=== PATIENT | female | born 1975 | race Caucasian/White ===

== ENCOUNTER 2020-07-09 07:39 | Outpatient (CLI) | payer OTHER, SELFPAY ==
--- NOTE | ~2020-07-09 | MM_ITS ---
EXAMINATION: MM screening [facility] BI w travis HISTORY: Screening mammogram TECHNIQUE: Craniocaudal and mediolateral oblique 3-D tomosynthesis images were obtained and synthetic 2-D images were generated. CAD analysis was submitted and interpreted. COMPARISON: 06/11/2019, 03/28/2018 BREAST PARENCHYMAL COMPOSITION: The breasts are heterogeneously dense, which may obscure small masses . FINDINGS: There is no evidence of suspicious mass, calcification, or architectural distortion to sugg est malignancy in either breast. There has been no suspicious interval change. IMPRESSION: 1. No mammographic evidence of malignancy. 2. Recommend routine screening mammography in one year. BI-RADS Category 1: Negative Reviewed, dictated and finalized at location A.
== END 2020-07-09 07:40 | disposition home or self-care (01) ==
PROVIDERS: PCP Internal Medicine; Visit Provider Obstetrics & Gynecology Gynecology
DX: Z12.31 Encounter for screening mammogram for malignant neoplasm of breast (principal)
CPT/HCPCS: 77063; 77067

== ENCOUNTER → 2020-09-12 09:49 | Outpatient (CLI) | payer OTHER, SELFPAY ==
--- NOTE | ~2020-09-12 | MR_ITS ---
EXAMINATION: MR shoulder RT wo con DATE: 09/12/2020 10:21 INDICATION: Right shoulder pain. TECHNIQUE: Magnetic resonance imaging (MRI) of the right shoulder was performed without intravenous c ontrast. Sequences included axial PD-weighted FS FSE, coronal oblique PD-weighted FS FSE and T2-weigh nancy FS FSE, and sagittal oblique T2-weighted FS FSE and T1-weighted FSE. COMPARISON: None. FINDINGS: Coracoacromial arch: The acromion undersurface is curved in morphology (type II). The acromioclavicular joint is normal. T here is mild subacromial/subdeltoid bursitis. Rotator cuff: There is mild supraspinatus tendinopathy. Infraspinatus and teres minor tendons are normal. There is mild subscapularis tendinopathy. No tear. There is no asymmetric fatty atrophy of the rotator cuff mu scle bellies. There is increased T2-weighted signal intensity in subscapularis muscle belly, consiste nt with mild strain. Biceps tendon and glenoid labrum: Biceps tendon is in bicipital groove. Intra-articular biceps tendon is normal. The glenoid labrum is normal. Fluid: There is a small glenohumeral joint effusion. There is mild subcoracoid bursitis. Bones/cartilage: Glenoid cartilage is normal. Humeral head cartilage is normal. IMPRESSION: 1. Mild subscapularis muscle strain (grade 1). 2. Mild rotator cuff tendinopathy. No tear. 3. Small glenohumeral joint effusion. 4. Mild subcoracoid bursitis. Mild subacromial/subdeltoid bursitis. Reviewed, dictated and finalized at location A. [employer]
== END ==
PROVIDERS: Visit Provider Chiropractor Rehabilitation
DX: M25.511 Pain in right shoulder (principal); S46.811A Strain of other muscles, fascia and tendons at shoulder and upper arm level, right arm, initial encounter; M75.81 Other shoulder lesions, right shoulder; M25.411 Effusion, right shoulder; M75.51 Bursitis of right shoulder
CPT/HCPCS: 73221